=== PATIENT | female | born 1975 | race African-American/Black ===

== ENCOUNTER 2024-12-13 06:30 | Emergency (ER) | payer MEDICARE, SELFPAY ==
[2024-12-13 06:47] VITALS: BP 191/100; PULSE 95; RESP 16; TEMP 36.7; O2SAT 98; BMI 34.2
--- NOTE | 2024-12-13 06:54 | ED.GENADULT ---
HPI - General Adult General Chief complaint: Eye Problems Stated complaint: Puffy left eye pain . Possible thrush, pink eye Time Seen by Provider: 12/13/24 06:37 Source: patient Mode of arrival: Ambulatory History of Present Illness HPI narrative: 29-year-old woman with a history of diabetes, hypertension, asthma who presents complaining of left eye pain that is started last night. She does not recall any specific trauma no foreign debris blowing in the eye, no history of diabetes the eye has been tearing much of the evening and disrupting her sleep. No debris from the I and no significant swelling around the eye. Conjunctiva is erythematous Related Data Allergies Allergy/AdvReac Type Severity Reaction Status Date / Time prednisone Allergy Severe Anaphylaxis Verified 12/13/24 06:46 Review of Systems Review of Systems Narrative: Pertinent positive and negative findings as per HPI Patient History Medical History (Updated 12/13/24 @ 07:03 by Mariajose Marshall MD) Diabetes Hypertension Smoking Status: Never smoker Exam Initial Vital Signs Initial Vital Signs: Vital Signs Temperature 98.1 F 12/13/24 06:47 Pulse Rate 95 H 12/13/24 06:47 Respiratory Rate 16 12/13/24 06:47 Blood Pressure 191/100 H 12/13/24 06:47 Pulse Oximetry 98 12/13/24 06:47 Oxygen Delivery Method Room Air 12/13/24 06:47 General: Alert appropriate appears uncomfortable with tearing from the left eye HEENT: Pupils are equal and reactive. Eye pressure on the left is 21 visual acuity at at her baseline No obvious abnormalities with direct visualization, pain completely relieved with topical anesthetic With fluorescein staining she is some irritation from - that is expanding up into the sclera Eyelid is inverted with no obvious foreign body or debris adherent Respiratory: Able to speak in full sentences, no obvious respiratory distress Skin: No obvious rashes, warm and dry Neurologic: Grossly intact no obvious asymmetries or abnormalities Psych: appropriate insight and affect, cooperative Course Orders Ordered: Erythromycin (Erythromycin Ophth 1 Gm Oint) 1 applic EYE-LEFT NOW ONE Stop: 12/13/24 06:55 Vital Signs Vital signs: Vital Signs - 8 hr 12/13/24 06:47 Temperature 98.1 F Pulse Rate 95 H Respiratory Rate 16 Blood Pressure 191/100 H Pulse Oximetry 98 Oxygen Delivery Method Room Air Medical Decision Making [facility] Narrative Medical decision making narrative: 49-year-old woman presents with left eye pain present since last night. No obvious foreign bodies of which she is aware. She is not had similar issues before. She does not wear contacts. Visual acuity is appropriate. Pain has completely resolved with topical anesthetic. Fluorescein staining does suggest a small corneal abrasion from 12-1 o'clock in the left eye extending out over the sclera. No debris retained under the eyelid. I pressures are appropriate, this is not acute glaucoma nor globe rupture. We will suggest antibiotic eye ointment, erythromycin, small amount to the left eye every 4 hours for 2 days. Explain the nature of the small abrasion, anticipated course of recovery and reasons to return to the emergency department if she worsens. She is safe for discharge Discharge Plan Departure Patient Disposition: Home Clinical Impression: Corneal abrasion Qualifiers: Encounter type: initial encounter Laterality: left Qualified Code(s): S05.02XA - Injury of conjunctiva and corneal abrasion without foreign body, left eye, initial encounter Instructions: DI for Corneal Abrasion Activity Restrictions/Additional Instructions: Thank you for coming in today You have a bit of irritation on the cornea of your eye. I suspect you had either an eyelash her a bit of dust under your eyelid that caused the irritation. On exam, I did turn your eyelid inside out there is no longer any debris adherent. Your pain completely relieved with a topical anesthetic suggests that the problem is all in the surface of your eye. There was no evidence acute glaucoma or damage or involvement of the posterior parts of the eye I have given you some antibiotic ointment, put a small amount in the lower eyelid and let it coat the surface of your eye ball 4 times a day for the next 2 days. The surface of your eyeball does tend to heal very quickly. Please be careful about rubbing your eye to prevent any further damage If you find that you are getting worse, you are having vision changes there is any worsening discharge from your eye or you have new symptoms you do need to return to the emergency depart Your blood pressure was noted to be slightly elevated this morning, clearly pain and anxiety were a part of that but I would strongly suggest that you restart your blood pressure medications and make a point of checking your blood pressures a couple of times a week to make sure that they are lowering appropriately Stand Alone Forms: Patient Portal/API
[2024-12-13] MEDS: ERYTHROMYCIN OPHTH 1 GM OINT 1 APPLIC EYE-LEFT (06:57)
[2024-12-13] MEDS: FLUORESCEIN 1 MG STRIP EYE-LEFT (06:57)
[2024-12-13 07:07] VITALS: BP 149/94; PULSE 83; RESP 20; O2SAT 97
== END 2024-12-13 07:09 | disposition home or self-care (01) ==
PROVIDERS: Emergency Provider Emergency Medicine
DX: S05.02XA Injury of conjunctiva and corneal abrasion without foreign body, left eye, initial encounter (principal)
CPT/HCPCS: 99282